=== PATIENT | male | born 1960 | race Caucasian/White ===

== ENCOUNTER 2018-12-01 12:32 | Day surgery (SDC) | payer OTHER ==
[2018-12-01] MEDS ORDERED: FENTAnyl 50 MCG/ML VIAL (14:22)
[2018-12-01] MEDS ORDERED: MIDAZOLAM 1 MG/ML 2 ML INJ ×2 (14:22)
== END 2018-12-01 14:47 | disposition home or self-care (01) ==
LOC: GIL 12:32
DX: R19.4 Change in bowel habit (principal); K64.8 Other hemorrhoids; Z86.010 Personal history of colon polyps
CPT/HCPCS: 45378